=== PATIENT | female | born 1955 | race Caucasian/White ===

== ENCOUNTER 2020-07-26 10:37 | Outpatient (CLI) | payer OTHER | END 2020-07-26 10:38 | disposition home or self-care (01) | LOC: BICMAMMO 10:37 | PROVIDERS: ATTEND Emergency Medicine | DX: Z12.31 Encounter for screening mammogram for malignant neoplasm of breast (principal); Z91.89 Other specified personal risk factors, not elsewhere classified | CPT/HCPCS: 77063; 77067 ==